=== PATIENT | male | born 1950 | race Caucasian/White ===

== ENCOUNTER 2018-02-09 16:17 | Emergency (ER) | payer OTHER ==
[~2018-02-09] VITALS: Ht 177.8 cm; Wt 79.4 kg
[2018-02-09] MEDS ORDERED: AMARYL4 MG PO (16:20)
[2018-02-09] MEDS ORDERED: LOVASTATIN 20 M20 MG PO (16:20)
[2018-02-09] MEDS ORDERED: DEPAKOTE 250MG250 M1 PO (16:20)
[2018-02-09] MEDS ORDERED: OMEPRAZOLE 20 M20 M1 PO (16:21)
[2018-02-09] MEDS ORDERED: ZESTRIL2.5 MG PO (16:21)
[2018-02-09] MEDS ORDERED: METFORMIN HCL500 MG PO (16:21)
[2018-02-09 16:50] VITALS: BP 146/71
[2018-02-09] MEDS ORDERED: ASPIR 8181 MG PO (16:54)
[2018-02-09] MEDS ORDERED: FISH OIL 1,001000 M2 PO (16:55)
[2018-02-09] MEDS ORDERED: CALCIUM 600 +1 EAC1 PO (16:55)
[2018-02-09] MEDS ORDERED: MAGOX 400400 MG PO (16:55)
[2018-02-09] MEDS ORDERED: JANUVIA100 MG PO (16:56)
[2018-02-09] MEDS ORDERED: HYDROCODONE-AP1 EAC6 PO (17:05)
[2018-02-09] MEDS ORDERED: FLEXERIL PO (17:05)
[2018-02-09] MEDS ORDERED: SENNA8.6 MG PO (17:05)
== END 2018-02-09 17:22 | disposition home or self-care (01) ==
LOC: ER 16:17
DX: S40.012A Contusion of left shoulder, initial encounter (principal); S16.1XXA Strain of muscle, fascia and tendon at neck level, initial encounter; Z88.0 Allergy status to penicillin; V89.2XXA Person injured in unspecified motor-vehicle accident, traffic, initial encounter; Y93.89 Activity, other specified; Y92.89 Other specified places as the place of occurrence of the external cause; Y99.8 Other external cause status